=== PATIENT | female | born 1980 | race Caucasian/White ===

== ENCOUNTER 2016-12-03 18:53 | Emergency (ER) | payer MEDICAID, OTHER ==
[~2016-12-03] VITALS: Ht 162.6 cm; Wt 73.5 kg
[~2016-12-03 18:53] MED LIST: FERR27TA PO; PREN1TAB49 PO
[2016-12-03 18:56] VITALS: Ht 162.6 cm; Wt 73.5 kg
--- NOTE | 2016-12-03 20:31 | ERD ---
ER Documentation Chief Complaint Date/Time DATE: 12/03/16 TIME: 20:29 Chief Complaint 15 wks , vag bleeding HPI This is a 36-year-old female who presents to the emergency department today complaining of blood in her urine and when she wiped her vagina. States she is approximately 16 weeks . States she has some lower pelvic pain. She has not taken a medication. Her last ultrasound was October 15 and everything was normal. Denies any fevers or chills, dysuria, vomiting or diarrhea. ROS All systems reviewed and are negative except as per history of present illness. Medications Home Meds Active Scripts Acetaminophen* (Tylophen*) 500 Mg Capsule, 1 CAP PO Q6H Y for PAIN AND OR ELEVATED TEMP, #30 CAP Prov:ETHAN PRECIADO PA-C 12/03/16 Reported Medications Vits W-Ca,Fe,Fa(<1MG) () 1 Tab Tablet, 1 TAB PO 03/06/12 Ferrous Sulfate (Iron) 1 Tab Tablet, 1 TAB PO DAILY 03/06/12 Allergies Allergies: Coded Allergies: No Known Drug Allergies (Verified Allergy, Mild, 03/06/12) PMhx/Soc History of Surgery: Yes (Appy) Anesthesia Reaction: No Hx Neurological Disorder: No Hx Respiratory Disorders: No Hx Cardiac Disorders: No Hx Psychiatric Problems: No Hx Miscellaneous Medical Probl: Yes (Gestational DM) Hx Alcohol Use: No Hx Substance Use: No Hx Tobacco Use: No Smoking Status: Never smoker Physical Exam Vitals Vital Signs Date Time Temp Pulse Resp B/P Pulse Ox O2 Delivery O2 Flow Rate FiO2 12/03/16 18:56 98.4 87 20 147/74 98 Physical Exam Const: NAD Head: Atraumatic Eyes: Normal Conjunctiva ENT: Normal External Ears, Nose and Mouth. Neck: Full range of motion..~ No meningismus. Resp: Clear to auscultation bilaterally Cardio: Regular rate and rhythm, no murmurs Abd: Soft, mild pelvic tenderness non distended. Normal bowel sounds. No tenderness at McBurney's Skin: No petechiae or rashes Back: No midline or flank tenderness Ext: No cyanosis, or edema Neur: Awake and alert Psych: Normal Mood and Affect Result Diagram: 12/03/162044 Results 24 hrs Laboratory Tests Test 12/03/16 20:07 12/03/16 20:45 Urine Color STRAW Urine Clarity CLEAR Urine pH 6.0 Urine Specific Gratis 1.008 Urine Ketones NEGATIVEmg/dL Urine Nitrite NEGATIVEmg/dL Urine Bilirubin NEGATIVEmg/dL Urine Urobilinogen NEGATIVEmg/dL Urine Leukocyte Esterase NEGATIVELeu/ul Urine Microscopic RBC 0/HPF Urine Microscopic WBC 0/HPF Urine Bacteria FEW/HPF Urine Hemoglobin 3+mg/dL Urine Glucose NEGATIVEmg/dL Urine Total Protein NEGATIVEmg/dl White Blood Count 9.010^3/ul Red Blood Count 3.9710^6/ul Hemoglobin 12.3g/dl Hematocrit 36.3% Mean Corpuscular Volume 91.4fl Mean Corpuscular Hemoglobin 31.0pg Mean Corpuscular Hemoglobin Concent 33.9g/dl Red Cell Distribution Width 13.1% Platelet Count 35165^3/UL Mean Platelet Volume 8.7fl Neutrophils % 62.8% Lymphocytes % 27.7% Monocytes % 7.7% Eosinophils % 1.0% Basophils % 0.2% Nucleated Red Blood Cells % 0.0/100WBC Neutrophils # 5.710^3/ul Lymphocytes # 2.510^3/ul Monocytes # 0.710^3/ul Eosinophils # 0.110^3/ul Basophils # 0.010^3/ul Nucleated Red Blood Cells # 0.010^3/ul Beta HCG, Quantitative 50767.0mIU/ml DIAGNOSTIC IMAGING REPORT Patient: SAM FONTANA : 1980 Age: 36 Sex: F MR #: [id number] DOS: 12/03/16 0000 Ordering MD: ETHAN PRECIADO PA-C Location: [facility] Room/Bed: PROCEDURE: US OB. CLINICAL INDICATION: Vaginal bleeding. TECHNIQUE: Multiple sonographic images of the pelvis were obtained. Transabdominal imaging only was performed. The images were reviewed on a PACS workstation. COMPARISON: Ultrasound dated 03/02/2012. FINDINGS: There is a single viable intrauterine gestation. Cardiac activity is present with a heart rate of 163 bpm. There is a cephalic presentation. Measurements were made in order to determine age. The results are as follows: BPD = 3.45 cm HC = 12.93 cm AC = 10.78 cm FL = 2.21 cm Estimated gestational age of approximately 16 weeks 5 days. The estimated date of delivery is 05/15/2017. The EFW = 164.04 g, at the 22.9 percentile. The placenta is anterior, grade 0/1. There is no evidence for an abruption or placenta previa. The MVP = 5.26 cm. IMPRESSION: 1. Single viable intrauterine gestation of approximately 16 weeks 5 days. 2. The estimated date of delivery is 05/15/2017. RPTAT: HLBP .Rito Morrell MD, MD Date Time Electronically viewed and signed by .Rito Morrell MD, MD on 12/03/2016 22:03 .P/ CC: ETHAN PRECIADO PA-C Procedures/MDM This is a 36-year-old female who presents to the emergency department today complaining of vaginal bleeding. Patient states she is approximately 16 weeks. Given this I did obtain a complete OB workup. Laboratory work shows no elevated white blood cell count. She is not anemic. Platelets are within normal limits. UA is negative for infection Beta quant hCG 04134.0 Rh status O+ Ultrasound shows single viable intrauterine gestation of approximately 16 weeks and 5 days. Estimated date of delivery is May 15, 2017. There is no evidence for an abruption or placenta previa. Cardiac activity is present with a heart rate of 1 63 bpm Patient symptoms at this time is consistent with vaginal bleeding in early . Other differentials to consider early normal versus early failed versus placenta previa versus subchorionic hemorrhage. Patient is afebrile and otherwise well-appearing. I have low suspicion for ectopic , tubo ovarian abscess, ovarian torsion. Patient's pain was more right-sided however she is ready had her appendix removed. Low suspicion for acute surgical abdomen. I have explained the results to the patient. Follow-up with her primary care clinic or chief medical officer. Patient declined Tylenol here in the emergency department. She will be given a prescription for home. At this time the patient is stable for discharge and outpatient management. Patient should follow up with their PCP in the next 1-2 days. They may return to the emergency department sooner for any persistent or worsening of symptoms. Patient understood and agreed with the plan. Departure Diagnosis: Primary Impression: Vaginal bleeding in patient at less than 20 weeks gestation Condition: ETHAN Small PA-C Dec 03, 2016 20:31
[2016-12-03 20:49] LABS: ADD UMIC YES; UR ASCORBIC ACID NEGATIVE (NEGATIVE); UR BACTERIA FEW /HPF (NONE SEEN); UR BILIRUBIN (Dip) NEGATIVE (NEGATIVE); UR BLOOD (Dip) 3+ mg/dL (NEGATIVE); UR CLARITY CLEAR (CLEAR); UR COLOR STRAW (YELLOW); UR GLUCOSE (Dip) NEGATIVE (NEGATIVE); UR KETONES (Dip) NEGATIVE (NEGATIVE); UR LEUKOCYTE ESTERASE (Dip) NEGATIVE Leu/ul (NEGATIVE); UR NITRITE (Dip) NEGATIVE (NEGATIVE); UR RBC 0 /HPF (0-5); UR SPECIFIC GRAVITY (Dip) 1.008 (1.003-1.030); UR TOTAL PROTEIN (Dip) NEGATIVE (NEGATIVE); UR UROBILINOGEN (Dip) NEGATIVE (NEGATIVE)
[2016-12-03 20:54] LABS: BASOPHILS % 0.2 % (0.0-2.0); EOSINOPHILS # 0.1 10^3/ul (0.0-0.5); HEMATOCRIT 36.3 % (37.0-47.0); HEMOGLOBIN 12.3 g/dl (12.0-16.0); LYMPHOCYTES # 2.5 10^3/ul (0.8-2.9); LYMPHOCYTES % 27.7 % (15.0-51.0); MEAN CORPUSCULAR HGB CONC 33.9 g/dl (32.0-37.0); MEAN CORPUSCULAR VOLUME 91.4 fl (82.0-101.0); MEAN PLATELET VOLUME 8.7 fl (7.4-10.4); MONOCYTE # 0.7 10^3/ul (0.3-0.9); MONOCYTES % 7.7 % (0.0-11.0); NEUTROPHIL # 5.7 10^3/ul (1.6-7.5); NEUTROPHILS % 62.8 % (39.0-77.0); PLATELET COUNT 239 10^3/UL (140-415); RED BLOOD COUNT 3.97 10^6/ul (4.20-5.40); RED CELL DISTRIBUTION WIDTH 13.1 % (11.5-14.5)
--- NOTE | 2016-12-03 22:03 | RADRPT ---
PROCEDURE: US OB. CLINICAL INDICATION: Vaginal bleeding. TECHNIQUE: Multiple sonographic images of the pelvis were obtained. Transabdominal imaging only wa s performed. The images were reviewed on a PACS workstation. COMPARISON: Ultrasound dated 03/02/2012. FINDINGS: There is a single viable intrauterine gestation. Cardiac activity is present with a heart rate of 1 63 bpm. There is a cephalic presentation. Measurements were made in order to determine age. The results are as follows: BPD = 3.45 cm HC = 12.93 cm AC = 10.78 cm FL = 2.21 cm Estimated gestational age of approximately 16 weeks 5 days. The estimated date of delivery is 05/15/2017. The EFW = 164.04 g, at the 22.9 percentile. The placenta is anterior, grade 0/1. There is no evidence for an abruption or placenta previa. The MVP = 5.26 cm. IMPRESSION: 1. Single viable intrauterine gestation of approximately 16 weeks 5 days. 2. The estimated date of delivery is 05/15/2017. RPTAT: HLBP .Rito Morrell MD, Date Time Electronically viewed and signed by .Rito Morrell MD, MD on 12/03/2016 22:03 .P/
[2016-12-03] MEDS ORDERED: ACET500C5 PO (22:08)
[2016-12-03 22:16] VITALS: BP 122/70; PULSE 81; RESP 18; TEMP 98
== END 2016-12-03 22:17 | disposition home or self-care (01) ==
LOC: FTE 18:53
DX: O20.9 Hemorrhage in early pregnancy, unspecified (principal); R10.2 Pelvic and perineal pain; Z3A.16 16 weeks gestation of pregnancy
CPT/HCPCS: 36415; 76805; 81001; 84702; 85025; 86900; 86901; Z7502

== ENCOUNTER 2017-04-19 11:34 | Outpatient (CLI) | END 2017-04-19 16:04 | disposition home or self-care (01) ==

== ENCOUNTER 2017-04-20 16:30 | Inpatient (IN) | END 2017-04-27 15:30 | disposition home or self-care (01) | DRG 775 ==